=== PATIENT | female | born 1950 | race Caucasian/White ===

== ENCOUNTER 2018-02-16 06:16 | Inpatient (IN) | payer BC, OTHER ==
[2018-02-02 09:49] VITALS: Ht 165.1 cm; Wt 84.3 kg
--- NOTE | 2018-02-02 10:31 | PAT Medication Instructions ---
Service Date Feb 02, 2018. Current Home Medication List Amlodipine/Benazepril (Lotrel 10MG/20MG), 1 CAP PO QAM Aspirin (Aspirin Ec), 81 MG PO QAM B-Complex Vitamins (B Complex), 1 CAP PO QAM Coenzyme Q10 (Ubidecarenone) (Coq10), 1 CAP PO BID Cranberry-Vitamin C-Vitamin E (Cranberry Plus Vitamin C), 1 CAP PO BID Fish Oil (Pahala-3), 1 CAP PO BID Glucosamine Sulfate (Glucosamine), 1,000 MG PO BID Magnesium Oxide (Magnesium), 250 MG PO BID Meclizine HCl (Meclizine 25), 1 TAB PO UD PRN for dizziness Metoprolol Succ (Toprol Xl) (Toprol-Xl ), 100 MG PO HS Naproxen Ds (Naprosyn Ds), 550 MG PO UD PRN for Pain Nitroglycerin (Nitrostat), 1 TAB SL UD PRN for prn Omeprazole (Prilosec), 20 MG PO QAM Tramadol (Ultram), 50 MG PO Q8H PRN for Pain Umeclidinium-Vilanterol (Anoro Ellipta 62.5-25 Mcg/INH), 1 DOSE INH QAM Medication Instructions For Your Scheduled Surgery -Contact your surgeon for instructions for: Naproxen Ds (Naprosyn Ds), 550 MG PO UD PRN for Pain -Continue as directed: Nitroglycerin (Nitrostat), 1 TAB SL UD PRN for prn - Hold the following medications 2 weeks prior to surgery: Coenzyme Q10 (Ubidecarenone) (Coq10), 1 CAP PO BID Cranberry-Vitamin C-Vitamin E (Cranberry Plus Vitamin C), 1 CAP PO BID Fish Oil (Pahala-3), 1 CAP PO BID Glucosamine Sulfate (Glucosamine), 1,000 MG PO BID - Hold the following medications the morning of surgery: Amlodipine/Benazepril (Lotrel 10MG/20MG), 1 CAP PO QAM B-Complex Vitamins (B Complex), 1 CAP PO QAM Magnesium Oxide (Magnesium), 250 MG PO BID - Take the following medications the morning of surgery with a sip of water: Aspirin (Aspirin Ec), 81 MG PO QAM Omeprazole (Prilosec), 20 MG PO QAM Tramadol (Ultram), 50 MG PO Q8H PRN for Pain (if needed, can be taken up to four hours before surgery) Umeclidinium-Vilanterol (Anoro Ellipta 62.5-25 Mcg/INH), 1 DOSE INH QAM - Take the following medications as scheduled the night before surgery: Magnesium Oxide (Magnesium), 250 MG PO BID Meclizine HCl (Meclizine 25), 1 TAB PO UD PRN for dizziness (if needed) Metoprolol Succ (Toprol Xl) (Toprol-Xl ), 100 MG PO HS Tramadol (Ultram), 50 MG PO Q8H PRN for Pain (if needed) If you have any questions please call us at [phone] or [phone] or [phone]
--- NOTE | 2018-02-02 11:24 | DIAGNOSTIC IMAGING REPORT ---
CHEST 2 VIEWS ROUTINE HISTORY: 67 years-old Female PAT preoperative exam. No acute chest complaints COMPARISON: None available TECHNIQUE: PA and lateral views of the chest FINDINGS: Cardiomediastinal and hilar silhouettes are within normal limits. No pneumothorax, pleural effusion, focal airspace consolidation or overt pulmonary edema. Minimal linear subsegmental atelectasis or scarring of the left lung base. Bones of the chest appear grossly intact. Cholecystectomy clips are noted. IMPRESSION: No acute process. The above report was generated using voice recognition software. It may contain grammatical, syntax or spelling errors. Electronically signed by: Stanley Moreno M.D. 02/02/2018 11:22 AM Dictated Date/Time: 02/02/2018 11:21 AM
[2018-02-02 11:53] LABS: BASO % 0.2 %; BASO ABS # 0.02 K/uL (0-0.2); EOS % 1.5 %; EOS ABS # 0.12 K/uL (0-0.5); HEMATOCRIT 40.7 % (37-47); HEMOGLOBIN 13.8 g/dL (12.0-16.0); IG# 0.01 K/uL (0.00-0.02); LYMPH % 30.2 %; LYMPH ABS # 2.45 K/uL (1.2-3.4); MEAN CELL VOLUME 96.4 fL (80-100); MEAN CORPUSCULAR HEMOGLOBIN 32.7 pg (25-34); MEAN CORPUSCULAR HGB CONC 33.9 g/dl (32-36); MEAN PLATELET VOLUME 9.7 fL (7.4-10.4); MONO % 7.4 %; NEUT % 60.6 %; NEUT ABS # 4.92 K/uL (1.4-6.5); PLATELET COUNT 304 K/uL (130-400); RED CELL DISTRIBUTION WIDTH CV 13.2 % (11.5-14.5); RED CELL DISTRIBUTION WIDTH SD 45.1 fL (36.4-46.3); WHITE BLOOD COUNT 8.12 K/uL (4.8-10.8)
[2018-02-02 12:53] LABS: BLOOD UREA NITROGEN 24 mg/dl (7-18); CALCIUM 9.5 mg/dl (8.5-10.1); CARBON DIOXIDE 27 mmol/L (21-32); CREATININE 1.17 mg/dl (0.60-1.20); GLUCOSE 114 mg/dl (70-99); POTASSIUM 4.6 mmol/L (3.5-5.1); SODIUM 135 mmol/L (136-145)
--- NOTE | 2018-02-08 17:57 | HISTORY & PHYSICAL EXAMINATION ---
DATE OF ADMISSION: 02/16/2018 CHIEF COMPLAINT: Right hip and leg pain. HISTORY OF PRESENT ILLNESS: The patient is a 67-year-old female who presents for surgical treatment of her right hip. She has about a 7- to 8-month history of markedly increased right hip pain and discomfort. He describes buttock pain, groin pain, and thigh pain. He describes it gotten worse over the past several months. She got more debilitated by this. She did have one injection which helped her very temporarily. She has actually has ordered to use a cane to get around for the past several months. She has had imaging studies which show progressive hip arthritis. She would like to proceed with total hip replacement. PAST MEDICAL HISTORY: 1. Hypertension. 2. Elevated cholesterol. 3. Arthritis. 4. Gastroesophageal reflux disease. 5. Melanoma of the skin. PAST SURGICAL HISTORY: 1. Hysterectomy. 2. Cholecystectomy. 3. Skin cancer removal. 4. Eye surgery. 5. Trigger finger release done by myself. ALLERGIES: KEFLEX WHICH CAUSES HIVES. CURRENT MEDICINES: Include: 1. Omeprazole. 2. Lotrel. 3. Toprol-XL. 4. Fish oil. 5. Aspirin 81 mg. 6. Glucosamine/chondroitin. 7. Ellipta. 8. Magnesium. 9. Coenzyme Q. 10. Vitamin B complex. 11. Cranberry. SOCIAL HISTORY: 67-year-old female. She is from [place]. She is . One to two drinks per week. Four children. Does not smoke. FAMILY HISTORY: Significant for diabetes. REVIEW OF SYSTEMS: Negative for diabetes, neurologic problems, vascular problems or bleeding disorders. Denies any chest pain or shortness of breath. No signs of DVT or PE. PHYSICAL EXAMINATION: GENERAL: Reveals a healthy, pleasant middle-aged female. Looks to be in pretty good health. HEENT: Benign. NECK: Supple. No lymphadenopathy. LUNGS: Clear to auscultation. HEART: Regular rate and rhythm. ABDOMEN: Soft, nontender, nondistended. EXTREMITIES: Grossly neurovascularly intact except as follows: Examination of the right leg reveals the patient walks with use of a cane. She walks with a markedly antalgic gait. Leg lengths appear pretty equal. She may be a 0.5 cm short on the right side compared to the left. She has pain with any type of hip motion. No knee effusion. Internal rotation is to 10 degrees. X-RAYS: X-ray of the right hip reviewed. It shows advanced right hip DJD. She has complete loss of her joint space. She has got fairly concentric disease with cystic change of the femoral head and acetabulum. This has progressed markedly over the past year. MRI of the hip was also reviewed from 10/26/2017. It is on the [facility] system. It shows advanced hip arthritis. No signs of AVN. ASSESSMENT: A 67-year-old white female with a year history of progressive increasing right hip pain and discomfort, unresponsive to conservative treatment. She has gotten to the point where she has to use a cane to get around. PLAN: We are going to take her to the operating room and do a right total hip replacement. The risks and benefits of this procedure were explained to the patient but not limited to DVT, PE, , infection, neurological injury, vascular injury, bleeding problem, pain, limited range of motion, stiffness, failure to relieve symptoms, incomplete relief of symptoms, need for further surgery in future, fracture, leg length inequality, nerve palsy, dislocation, etc. The patient understands and desires. Informed consent was obtained. We did talk to her about taking her Toprol the morning of surgery and holding her supplements 10 days preop. She apparently HAS AN ALLERGIC REACTION TO KEFLEX, so will use vancomycin as a result. We will need to start that early. She is planning to be discharged home using the home health program. JOSE RAMON
[~2018-02-16] VITALS: Ht 165.1 cm; Wt 84.3 kg
[2018-02-16] VITALS (18 sets, daily range): BP systolic 99–163; BP diastolic 62–97; PULSE 68–85; TEMP 36.3–36.8; O2SAT 97–100
[~2018-02-16 06:16] MED LIST: ACETAMINOPHEN 500 MG TAB PO SCH; AMLO10CA PO; ASPI81TA28 PO; B-CO1CAP3 PO; COEN30CA6 PO; CRAN1CAP14 PO; FAMOTIDINE 20 MG TAB PO SCH; GABAPENTIN 300 MG CAP PO SCH; GLUC10007 PO; LACTATED RINGER'S 1000ML 1,000 ML IV SCH; LACTATED RINGER'S 1000ML IV SCH; MAGN1CAP4 PO; MECL-91 PO; METO100T44 PO; METOCLOPRAMIDE HCL 10 MG TAB PO SCH; NAPR-1168 PO; NSS 1000ML IV SCH; NTRGSL/4 SL; OMEG10007 PO; PRLSR20 PO; SCOPOLAMINE 1.5 MG TDSY TD SCH; TRAM-10 PO; TRANEXAMIC ACID 1000 MG IV SCH; UMEC1AER INH; VANCOMYCIN IV 1,250 MG in SODIUM CHLORIDE 0.9% 250ML 250 ML IV SCH
--- NOTE | 2018-02-16 06:53 | History & Physical Bridge Note ---
H&P Re-Evaluation Bridge Note: I have examined the patient, reviewed the History & Physical and in the interval since the performance of the History & Physical I have noted the following changes of clinical significance: No changes noted
[2018-02-16] MEDS ORDERED: BUPIVACAINE 0.5 % 5 MG/1 ML PF 10ML VIAL ONE (07:06)
[2018-02-16] MEDS ORDERED: LIDOCAINE HCL 2% 2 ML VIAL (20MG/ML) ONE (07:43)
[2018-02-16] MEDS ORDERED: MIDAZOLAM HCL 1 MG/ML 2ML VIAL ONE ×2 (07:43)
[2018-02-16] MEDS ORDERED: PROPOFOL IV EMULSION 10 MG/ML 20 ML VIAL IV ONE (07:43)
[2018-02-16] MEDS ORDERED: FENTANYL CITRATE INJ 50 MCG/1 ML 2 ML VIAL ONE (08:18)
[2018-02-16] MEDS ORDERED: MoRPHine SULFATE PF 1 MG/ML 10 ML AMP/VIAL ONE (08:37)
[2018-02-16] MEDS ORDERED: BUPIVACAINE/EPINEPHRINE 0.5% MPF 1:200,000 30 ML VIAL ONE (08:41)
[2018-02-16] MEDS ORDERED: BACITRACIN 50000 UNIT VIAL ONE (08:41)
[2018-02-16] MEDS ORDERED: MoRPHine SULFATE PF 1 MG/ML 10 ML AMP/VIAL EPI SCH (08:55)
[2018-02-16] MEDS ORDERED: PHENYLEPHRINE HCL INJ 10 MG/ML VIAL ONE (09:28)
--- NOTE | 2018-02-16 10:27 | [facility] Post Operative Brief Note ---
Immediate Operative Summary Operative Date Feb 16, 2018. Pre-Operative Diagnosis Advanced Right Hip Degenerative Joint Disease Post-Operative Diagnosis Same as preop Procedure(s) Performed Right Total Hip Arthroplasty Uncemented Surgeon Dr. Kaur Management Trainee Program Stores Surgeon(s) Yogesh Mercer PA-C Estimated Blood Loss 200 ml Findings Consistent with Post-Op Diagnosis Fluids (cc crystalloids) 1600 cc Specimens A. Left Femoral Head Drains None Anesthesia Type Spinal MAC Complication(s) none Disposition Accompanied Pt To Recover: yes Disposition: Recovery Room / PACU
[2018-02-16] MEDS ORDERED: VANCOMYCIN CONSULT ACTIVE PRN (10:30)
[2018-02-16] MEDS ORDERED: METOCLOPRAMIDE HCL INJ 5 MG/ML 2 ML VIAL IV PRN (10:30)
[2018-02-16] MEDS ORDERED: ALUMINUM/MAGNESIUM/SIMETH (MAALOX MAX) 30 ML UDC PO PRN (10:30)
[2018-02-16] MEDS ORDERED: MAGNESIUM HYDROXIDE SUSP 30 ML UDC PO PRN (10:30)
[2018-02-16] MEDS ORDERED: NITROGLYCERIN 0.4 MG SL PER TAB CHARGE SL PRN (10:30)
[2018-02-16] MEDS ORDERED: ATROPINE SULFATE 0.1 MG/ML 5ML SYR IV PRN (10:30)
[2018-02-16] MEDS ORDERED: MECLIZINE HCL 25 MG TAB PO PRN (10:30)
[2018-02-16] MEDS ORDERED: SILVER SULFADIAZINE 1% CR 50 GM JAR EXT PRN (10:30)
[2018-02-16] MEDS ORDERED: EpHEDrine SULFATE INJ 50 MG/ML AMP IV PRN ×2 (10:30→11:30)
[2018-02-16] MEDS ORDERED: BISACODYL 10 MG SUPP PR PRN (10:30)
--- NOTE | 2018-02-16 11:16 | OPERATIVE REPORT ---
DATE OF OPERATION: 02/16/2018 SURGEON: Saturnino Kaur MD YEAST CAKE CUTTER: ALBERT Boles PREOPERATIVE DIAGNOSIS: Right hip degenerative joint disease. POSTOPERATIVE DIAGNOSIS: Same. PROCEDURE PERFORMED: Right uncemented ceramic on highly cross-linked polyethylene total hip arthroplasty. COMPLICATIONS: None. ESTIMATED BLOOD LOSS: 200 mL. FLUID REPLACEMENT: 1600 mL crystalloid fluid replacement. ANESTHESIA: Spinal. DRAINS: None. SPECIMENS: Right femoral head sent for pathology. OPERATIVE INDICATIONS: The patient is a 67-year-old female who has had about an 8-month history of significantly increasing, gradually progressive increasing right hip pain, unresponsive to conservative care. She has been through extensive management including medicines and injection, which provided some temporary relief only. She actually resorted to using a cane to get around. X-rays show advanced right hip DJD. This progressed significantly over the past year. She elected to proceed with total hip arthroplasty. OPERATIVE FINDINGS: Operative findings revealed advanced right hip DJD. She did have grade 4 degenerative changes of the femoral head and acetabulum, more severe on the femoral head side. Some small osteophytes off the anterior aspect of the acetabulum. Small hip effusion. OPERATIVE IMPLANTS: Operative implants consisted of: 1. Biomet G7 size 48-mm acetabular shell. 2. A 6.5 cancellous acetabular screws, one at 35 mm length and one at 30 mm length. 3. An apex hole eliminator. 4. A highly cross-linked polyethylene liner with a 48 mm outer diameter and 28 mm inner diameter. 5. A DePuy size 10 coxa vara Corail femoral stem. 6. A +1.5/28 mm ceramic articular ball. OPERATIVE PROCEDURE: The patient was taken to the operating room, identified, and placed on the operating table in the supine position. All contact areas were appropriately padded. IV antibiotics were provided by anesthesia team. A spinal anesthetic had been implemented in the holding area. Miller catheter was placed in sterile fashion. The patient was then placed in the left lateral decubitus position. An axillary roll was placed. Stulberg hip positioner was used for positioning. The hip and leg were then prepped and draped in the usual sterile fashion. A posterolateral approach to the right hip was then performed through a curvilinear incision centered over the greater trochanter. Sharp dissection carried through the subcutaneous tissues down to the level of the IT band and gluteal fascia. The IT band and gluteal fascia were incised longitudinally in line with skin incision. The underlying greater trochanteric bursa was excised. The piriformis and external rotators were tagged and taken off the posterior aspect of the femur. Great care was taken throughout the procedure to protect the sciatic nerve at all times. Posterior capsulotomy was then performed leaving a large flap for later repair. Hip was internally rotated and dislocated. Femoral neck osteotomy cut was made with final cut about 7 mm above the lesser trochanter. Femoral head was removed and sent for pathology. The femur was retracted anteriorly. Attention was then drawn to the acetabulum. The acetabular labrum was excised. The pulvinar fat was excised. Sequential reaming of the acetabulum was then performed beginning with size 43 and progressing up to 47. A 48-mm Biomet G7 acetabular shell was then placed in about 45 degrees of lateral opening and 20 degrees of anteversion. I did have to open the entrance with a 48 reamer to get the cup in place. The cup was then fixed with two 6.5 cancellous acetabular screws. Some osteophytes were taken off anteriorly. A trial liner was placed. Attention was then drawn to the femur. The proximal femur was entered with a cookie cutter followed by canal finder. I broached beginning with a size 8 and progressed up to a 9. I got good fit at 9, but it did countersink a little bit, so I put the 10. I had difficulty fitting the [address] We elected to leave it just a little bit proud. I then trialed the hip. +1.5 articular ball provided full stability in full extension and external rotation and flexion to 90 degrees and internal rotation to 60+ degrees. Her leg lengths seemed to be just a little bit longer on this side, but I felt this was all I could do as we did not have any shorter neck lengths and I did not feel comfortable impacting this implant any further. We elected to accept these implants. All trial implants were removed. An apex hole eliminator was placed. Highly cross-linked polyethylene liner was placed. A 10 coxa vara Corail femoral stem was impacted in position. I left this about 2-mm proud. We then placed a +1.5/28 mm articular ball. Hip was located and found to be stable. Attention was then drawn toward closing. The wound was then irrigated with copious amounts of pulsatile lavage solution. I injected locally with 60 mL of 0.5% Marcaine with epinephrine. The posterior capsule and external rotators were repaired through drill holes in the posterior trochanter with #2 Ti-Cron suture. The IT band and gluteal fascia were then closed with #1 PDS suture in a running fashion. The subcutaneous tissues were then closed in 2 layers with the deep layer #1 Vicryl suture and subcutaneous tissues with 2-0 Dexon suture in buried interrupted fashion. The skin was closed with skin cindy. Leg was then cleaned and dried and a sterile dressing of Xeroform, 4 x 4's, ABD pad and foam tape was applied. The patient then transferred to the recovery room in stable condition. The patient tolerated the procedure well with no complications. All needle and sponge counts were correct at the end of the operation. I attest to the content of the Intraoperative Record and any orders documented therein. Any exception s are noted below.
[2018-02-16] MEDS ORDERED: LACTATED RINGER'S 1000ML 500 ML IV PRN (11:23)
[2018-02-16] MEDS ORDERED: SODIUM CHLORIDE 0.9% 1000ML 1,000 ML IV PRN (11:23)
[2018-02-16] MEDS ORDERED: NALOXONE HCL INJ 0.08 MG in SYRINGE 1.8 ML IV PRN (11:23)
[2018-02-16] MEDS ORDERED: NALOXONE HCL INJ 1 MG in SODIUM CHLORIDE 0.9% 1000ML 1,000 ML IV PRN ×4 (11:23)
--- NOTE | 2018-02-16 11:27 | Anesthesiology Progress Note ---
Anesthesia Post Op Note Date & Time Feb 16, 2018 at 11:26 Vital Signs Pain Intensity: 0 Vital Signs Past 12 Hours Date Time Temp Pulse Resp B/P (MAP) Pulse Ox O2 Delivery O2 Flow Rate FiO2 02/16/18 11:10 36.5 76 16 143/74 99 Nasal Cannula 3 02/16/18 10:55 72 16 130/67 98 Nasal Cannula 3 02/16/18 10:45 75 16 131/67 98 Nasal Cannula 3 02/16/18 10:35 71 16 129/66 98 Nasal Cannula 3 02/16/18 10:27 36.8 82 16 136/68 96 Nasal Cannula 3 02/16/18 07:29 36.8 82 18 163/97 98 Room Air Notes Mental Status: alert / awake / arousable, participated in evaluation Pt Amnestic to Procedure: Yes Nausea / Vomiting: adequately controlled Pain: adequately controlled Airway Patency, RR, SpO2: stable & adequate BP & HR: stable & adequate Hydration State: stable & adequate Neuraxial Anesthesia: was administered, sensory block is resolving Anesthetic Complications: no major complications apparent
[2018-02-16] MEDS ORDERED: NO NARCOTICS OR SEDATIVES SCH (11:30)
[2018-02-16] MEDS ORDERED: NALOXONE HCL 0.4 MG/1 ML VIAL/CARP IV PRN (11:30)
[2018-02-16] MEDS ORDERED: ONDANSETRON INJ 2 MG/ML 2 ML VIAL IV PRN (11:30)
[2018-02-16] MEDS ORDERED: DiphenhydrAMINE HCL 50 MG/ML VIAL IV PRN (11:30)
[2018-02-16] MEDS ORDERED: PROMETHAZINE HCL INJ 25 MG in SODIUM CHLORIDE 0.9% 50ML 50 ML IV PRN (11:30)
[2018-02-16] MEDS ORDERED: NALBUPHINE HCL INJ 10 MG/ML AMP IV PRN (11:30)
--- NOTE | 2018-02-16 11:34 | DIAGNOSTIC IMAGING REPORT ---
R PELVIS/UNILATERAL HIP 1 VIEW CLINICAL HISTORY: Right hip degenerative joint disease. COMPARISON: Right hip radiographs February 05, 2018. FINDINGS: Alignment of the total right hip arthroplasty is anatomic. There is no fracture or unexpected radiopaque foreign body. There are 2 acetabular screws and skin cindy. IMPRESSION: Expected findings following total right hip arthroplasty. Electronically signed by: Tyree Bailey M.D. 02/16/2018 11:33 AM Dictated Date/Time: 02/16/2018 11:32 AM
[2018-02-16] MEDS: D5W AND 1/2NSS + 20MEQ KCL 1,000 ML IV SCH ×2 (13:59→23:51)
--- NOTE | 2018-02-16 13:59 | PROGRESS NOTE ---
DATE: 02/16/2018 SUBJECTIVE: A 67-year-old white female postop from a right total hip replacement. She is doing pretty well. Pain is controlled, but she does have quite a bit of nausea. Just got some Zofran. Denies any chest pain or shortness of breath. Not feeling dizzy or lightheaded. OBJECTIVE: VITAL SIGNS: Temperature is 36.4. Vital signs stable. GENERAL: Physical examination reveals a pleasant, middle-aged female. She is sitting up in her bed and does look nauseated. LUNGS: Clear to auscultation. HEART: Regular rate and rhythm. ABDOMEN: Soft, nontender, and nondistended. EXTREMITIES: Grossly neurovascularly intact except as follows. Examination of the right leg reveals the leg lengths to be equal. Hip is located. Her dressing is clean, dry and intact. Thigh is soft and supple. She can dorsiflex and plantarflex her foot appropriately. She is neurologically intact. X-RAYS: X-rays of the right hip from the recovery room were reviewed. It shows right uncemented total hip arthroplasty. Components looked to be in good position. No signs of problems. ASSESSMENT: A 67-year-old white female postop from a right total hip replacement, doing pretty well. Her pain is controlled. Hip is located. She is neurologically intact. She has been nauseated and just got some Zofran. PLAN: 1. DVT prophylaxis including thigh high TEDs, SCDs, and aspirin twice a day. 2. PT/OT. Weightbear as tolerated. Right total hip protocol. 3. Pain control, doing well with current pain regimen. 4. IV antibiotics x24 hours. 5. Nausea. She has just got some Zofran. This is likely related to morphine and spinal. 6. Disposition: Plan to discharge to home with some home health once adequately recovered.
[2018-02-16] MEDS: ACETAMINOPHEN 500 MG TAB PO SCH ×2 (14:00→21:28)
[2018-02-16] MEDS: KETOROLAC TROMETHAMINE 15 MG/ML VIAL IV. SCH ×2 (14:04→20:15)
[2018-02-16] MEDS: CHECK SCOPOLAMINE PATCH PLACEMENT SCH ×2 (15:28→23:51)
[2018-02-16] MEDS: UMECLIDINIUM SCH ×2 (15:29→17:53)
[2018-02-16] MEDS: VILANTEROL SCH ×2 (15:29→17:53)
[2018-02-16] MEDS ORDERED: TRANEXAMIC ACID INJ 1,000 MG in SODIUM CHLORIDE 0.9% 100ML 100 ML IV SCH (16:30)
[2018-02-16] MEDS: FERROUS GLUCONATE 324 MG TAB PO SCH (17:45)
[2018-02-16] MEDS ORDERED: VANCOMYCIN IV 1,250 MG in SODIUM CHLORIDE 0.9% 250ML 250 ML IV SCH (19:00)
[2018-02-16] MEDS: ASPIRIN 81 MG ECTAB PO SCH (20:23)
[2018-02-16] MEDS: MAGNESIUM OXIDE 400 MG TAB PO SCH (20:23)
[2018-02-16] MEDS: SENNA 8.6 MG TAB PO SCH (20:23)
[2018-02-16] MEDS: DOCUSATE SODIUM 100 MG CAP PO SCH (20:23)
[2018-02-16] MEDS: METOPROLOL SUCC 50MG EXT REL TAB PO SCH (20:24)
[2018-02-16] MEDS ORDERED: NON-FORMULARY MEDICATION (Coenzyme Q10 (Ubidecarenone) (Coq10) 1 CAP) PO SCH (21:00)
[2018-02-17] VITALS (9 sets, daily range): BP systolic 107–121; BP diastolic 66–74; PULSE 67–84; TEMP 36.3–36.8; O2SAT 95–100
[2018-02-17] MEDS: KETOROLAC TROMETHAMINE 15 MG/ML VIAL IV. SCH ×4 (02:19→19:49)
[2018-02-17] MEDS ORDERED: TRAMADOL HCL 50 MG TAB PO PRN (04:00)
[2018-02-17] MEDS ORDERED: DC INTRASPINAL MORPHINE SCH (04:00)
[2018-02-17] MEDS ORDERED: ONDANSETRON INJ 2 MG/ML 2 ML VIAL IV PRN (04:00)
[2018-02-17] MEDS ORDERED: HYDROmorphone INJ 0.5 MG/0.5 ML SYR IV PRN (04:00)
[2018-02-17] MEDS ORDERED: ZOLPIDEM TARTRATE 5 MG TAB PO PRN (04:00)
[2018-02-17] MEDS: ACETAMINOPHEN 500 MG TAB PO SCH ×3 (06:35→20:57)
[2018-02-17 06:56] LABS: BASO % 0.2 %; BASO ABS # 0.02 K/uL (0-0.2); EOS % 0.3 %; EOS ABS # 0.03 K/uL (0-0.5); HEMOGLOBIN 11.1 g/dL (12.0-16.0); IG# 0.03 K/uL (0.00-0.02); LYMPH % 25.1 %; LYMPH ABS # 2.76 K/uL (1.2-3.4); MEAN CORPUSCULAR HEMOGLOBIN 31.4 pg (25-34); MEAN CORPUSCULAR HGB CONC 32.6 g/dl (32-36); MEAN PLATELET VOLUME 9.3 fL (7.4-10.4); MONO ABS # 0.88 K/uL (0.11-0.59); NEUT % 66.1 %; NEUT ABS # 7.26 K/uL (1.4-6.5); PLATELET COUNT 233 K/uL (130-400); RED CELL DISTRIBUTION WIDTH CV 13.4 % (11.5-14.5); RED CELL DISTRIBUTION WIDTH SD 46.8 fL (36.4-46.3); WHITE BLOOD COUNT 10.98 K/uL (4.8-10.8)
[2018-02-17 07:30] LABS: CALCIUM 8.1 mg/dl (8.5-10.1); CREATININE 1.07 mg/dl (0.60-1.20); POTASSIUM 4.5 mmol/L (3.5-5.1)
[2018-02-17] MEDS: CHECK SCOPOLAMINE PATCH PLACEMENT SCH ×2 (08:00→14:57)
--- NOTE | 2018-02-17 08:29 | PROGRESS NOTE ---
DATE: 02/17/2018 SUBJECTIVE: A 67-year-old white female postop day 1 from right total hip replacement. Doing much better this morning. The nausea is gone. No chest pain or shortness of breath. Not feeling dizzy or lightheaded. Pain is controlled. OBJECTIVE: VITAL SIGNS: Temperature 36.3. Vital signs stable. PHYSICAL EXAMINATION: GENERAL: Shows a pleasant middle-aged female. She is sitting up in bed, looks pretty comfortable. EXTREMITIES: Examination of the right hip reveals the dressing to be clean, dry and intact. Leg lengths are equal. Hip is located. NEUROLOGIC: She is neurologically intact. LABORATORY DATA: Hemoglobin 11.1. Hematocrit 34.0. Electrolytes are stable. ASSESSMENT: A 67-year-old white female postop day 1 from right total hip replacement. She is doing well. Pain is controlled. Nausea is resolved. She is neurologically intact. PLAN: 1. DVT prophylaxis including thigh-high TEDs, SCDs, and aspirin twice a day. 2. PT/OT. Weight bear as tolerated. Right total hip protocol. 3. Pain control, doing well with current pain regimen. 4. Disposition: She is hoping to be discharged to home and do outpatient therapy if needed.
[2018-02-17] MEDS: UMECLIDINIUM SCH ×2 (08:36→17:26)
[2018-02-17] MEDS: FERROUS GLUCONATE 324 MG TAB PO SCH ×3 (08:36→17:35)
[2018-02-17] MEDS: VILANTEROL SCH ×2 (08:36→17:26)
[2018-02-17] MEDS: DOCUSATE SODIUM 100 MG CAP PO SCH ×2 (08:37→20:56)
[2018-02-17] MEDS: MAGNESIUM OXIDE 400 MG TAB PO SCH ×2 (08:37→20:56)
[2018-02-17] MEDS: ASPIRIN 81 MG ECTAB PO SCH ×2 (08:37→20:56)
[2018-02-17] MEDS: PANTOprazole SOD 40 MG TAB PO SCH (08:38)
[2018-02-17] MEDS: MULTIVITAMIN TAB PO SCH (08:38)
[2018-02-17] MEDS: ENALAPRIL MALEATE 10 MG TAB PO SCH (08:39)
[2018-02-17] MEDS: VITAMIN B COMPLEX TAB PO SCH (08:39)
[2018-02-17] MEDS ORDERED: PANTOprazole SOD 40 MG TAB PO SCH (09:00)
[2018-02-17] MEDS: D5W AND 1/2NSS + 20MEQ KCL 1,000 ML IV SCH (09:40)
[2018-02-17] MEDS: AMLODIPINE BESYLATE 5 MG TAB PO SCH (10:09)
[2018-02-17] MEDS: SENNA 8.6 MG TAB PO SCH (20:56)
[2018-02-17] MEDS: METOPROLOL SUCC 50MG EXT REL TAB PO SCH (20:56)
[2018-02-17] MEDS ORDERED: ULT50X PO (22:13)
[2018-02-17] MEDS ORDERED: ASPEC81 PO (22:13)
[2018-02-17] MEDS ORDERED: ACET-24 PO (22:13)
--- NOTE | 2018-02-17 22:16 | Discharge Instructions ---
Discharge Instructions Date of Service Feb 17, 2018. Admission Reason for Admission: Right Hip Degenerative Joint Disease Discharge Discharge Diagnosis / Problem: Right Hip Replacement Discharge Goals Goal(s): Decrease discomfort, Improve function, Increase independence, Improve disease control, Therapeutic intervention Activity Recommendations Activity Limitations: per Instructions/Follow-up section (Total Hip Precautions ) Weightbearing Status: Right weightbearing . Instructions / Follow-Up Instructions / Follow-Up ACTIVITY RECOMMENDATIONS: Physical Therapy: * Aggressive physical therapy is not usually needed. You will learn to take care of yourself safely and walk. * Follow the "Hip Precautions Instructions." * In some cases, the long term care social worker at the hospital will arrange to have a therapist come to your house for the first couple of weeks to help you learn these skills. * You need to practice on your own or with the help of a family member as needed. * When you learn these skills, most of the therapy can be done on your own. Home Exercise: * You were shown a series of exercises in the hospital. Do these exercises three to four times each day including the exercises you were shown in physical therapy. Walking: * Get up and walk several times each day. For the first four weeks, try not to stand or walk for more than one hour at a time. If you do stand or walk for more than one hour, you will not hurt anything, but your leg will likely swell. * As you feel comfortable, you may change from the walker or crutches to a cane and then to independent walking. MEDICATIONS: New Medicine: * You will likely be taking one or more of these medicines: 1. Tramadol - Take, as directed, when you need it, every four to six hours to control your pain. 2. Aspirin - Thins your blood to lessen the chance of forming a blood clot. * The most common side effects of pain medicine and iron are nausea and constipation. If nausea or constipation is too much of a problem or if you have any questions about your new medicines or doses, call [facility] at [phone]. We will try to help you manage these issues. VERY IMPORTANT TO READ AND REVIEW" Pain: * The immediate post-operative period after hip replacement surgery is often quite painful. * You are given a prescription for pain medicine. You should take it, as directed, when you need it, especially before physical therapy and before going to bed. Pain that interferes with sleep is very common and can last several months. * You will likely need pain medicine for the first two to four weeks. It will not stop all of the pain. The pain will lessen and as you feel better, you may change to milder pain medicine such as Tylenol. * The most common side effects of pain medicine are nausea and constipation, so don't take more than you need. SPECIAL CARE INSTRUCTIONS: TEDs/Elastic Stockings: * The white elastic stockings help limit swelling and prevent blood clots from forming in your legs. The more you wear them, the more they work. * Wear them for six weeks. Prevention of Infection: * Take antibiotics one hour before any dental cleaning, dental work, urological procedure, gastrointestinal procedure or any invasive surgery in order to prevent your new joint from getting infected. * You may get the antibiotics from the doctor performing the procedure or you may call our office at before and we will call in a prescription to the pharmacy of your choice. Things to Watch For: * Drainage from the incision site that occurs more than one week after your surgery. * Severely increased leg pain or swelling. * Increased redness at the incision site. * Fever above 102 degrees Fahrenheit. * Unusual chest pain or shortness of breath. * Unusual pain or burning with urination. Call [facility] at with any of the above problems or if you have any questions about your medicines or recovery. FOLLOW UP VISIT: Make an appointment to see your doctor for approximately two weeks after surgery for a progress check and staple removal by calling the office at . Current Hospital Diet Patient's current hospital diet: Regular Diet Discharge Diet Recommended Diet: Regular Diet Procedures Procedures Performed: Right Total Hip Arthroplasty Uncemented Pending Studies Studies pending at discharge: no Medical Emergencies . Who to Call and When: Medical Emergencies: If at any time you feel your situation is an emergency, please call [phone] immediately. . Non-Emergent Contact Non-Emergency issues call your: Surgeon . "Provider Documentation" section prepared by Saturnino Kaur. .
[2018-02-18] MEDS: CHECK SCOPOLAMINE PATCH PLACEMENT SCH ×2 (00:07→07:54)
[2018-02-18] MEDS: KETOROLAC TROMETHAMINE 15 MG/ML VIAL IV. SCH ×2 (02:08→07:54)
[2018-02-18 06:05] VITALS: BP 132/78; PULSE 72; TEMP 36.9; O2SAT 96
[2018-02-18] MEDS: ACETAMINOPHEN 500 MG TAB PO SCH (06:08)
[2018-02-18] MEDS: FERROUS GLUCONATE 324 MG TAB PO SCH (07:54)
[2018-02-18] MEDS: VITAMIN B COMPLEX TAB PO SCH (07:55)
[2018-02-18] MEDS: MULTIVITAMIN TAB PO SCH (07:55)
[2018-02-18] MEDS: DOCUSATE SODIUM 100 MG CAP PO SCH (07:55)
[2018-02-18] MEDS: ENALAPRIL MALEATE 10 MG TAB PO SCH (07:56)
[2018-02-18] MEDS: PANTOprazole SOD 40 MG TAB PO SCH (07:56)
[2018-02-18] MEDS: MAGNESIUM OXIDE 400 MG TAB PO SCH (07:56)
[2018-02-18] MEDS: ASPIRIN 81 MG ECTAB PO SCH (07:57)
[2018-02-18] MEDS: AMLODIPINE BESYLATE 5 MG TAB PO SCH (07:57)
--- NOTE | 2018-02-18 08:08 | PROGRESS NOTE ---
DATE: 02/18/2018 SUBJECTIVE: A 67-year-old white female postop day 2 from right hip replacement. She is doing pretty well. Pain is controlled. No further nausea. No chest pain or shortness of breath. OBJECTIVE: VITAL SIGNS: Temperature is 36.9. Vital signs stable. PHYSICAL EXAMINATION: GENERAL: Shows a pleasant middle-aged female. She is sitting up at her bedside chair, eating breakfast, looks pretty comfortable. EXTREMITIES: Examination of the right hip reveals the dressing to be clean, dry and intact. Hip is located. She can dorsiflex and plantarflex her foot appropriately. NEUROLOGIC: She is neurologically intact. ASSESSMENT: A 67-year-old female postop day 2 from right hip replacement, doing pretty well. PLAN: 1. DVT prophylaxis including thigh-high TEDs, SCDs, and aspirin twice a day. 2. PT/OT. Weight bear as tolerated. Right total hip protocol. 3. Pain control, doing pretty well with current pain regimen. 4. Disposition: Planning to discharge to home after therapy today.
[2018-02-18 08:55] VITALS: BP 132/78; PULSE 72; TEMP 36.9; O2SAT 96
[2018-02-18] MEDS: VILANTEROL SCH (09:00)
[2018-02-18] MEDS: UMECLIDINIUM SCH (09:00)
== END 2018-02-18 10:15 | disposition home or self-care (01) | DRG 470 ==
LOC: C.ACU 06:16 → C.3E 06:35 → ENRESERV 11:00
PROVIDERS: ADMIT Orthopaedic Surgery Sports Medicine; ATTEND Orthopaedic Surgery Sports Medicine
PROC: 0SR904A Replacement of Right Hip Joint with Ceramic on Polyethylene Synthetic Substitute, Uncemented, Open Approach (ICD-10-PCS; principal; 2018-02-16 09:00)
DX: M16.11 Unilateral primary osteoarthritis, right hip (principal); R11.0 Nausea; T40.2X5A Adverse effect of other opioids, initial encounter; T41.3X5A Adverse effect of local anesthetics, initial encounter; I12.9 Hypertensive chronic kidney disease with stage 1 through stage 4 chronic kidney disease, or unspecified chronic kidney disease; N18.3 Chronic kidney disease, stage 3 (moderate); J98.4 Other disorders of lung; K21.9 Gastro-esophageal reflux disease without esophagitis; E66.9 Obesity, unspecified; Z68.30 Body mass index [BMI] 30.0-30.9, adult; Z85.820 Personal history of malignant melanoma of skin; Z97.0 Presence of artificial eye; Z90.01 Acquired absence of eye; Z90.710 Acquired absence of both cervix and uterus; Z90.49 Acquired absence of other specified parts of digestive tract; Z98.890 Other specified postprocedural states; Z79.82 Long term (current) use of aspirin; Z79.899 Other long term (current) drug therapy; Z88.1 Allergy status to other antibiotic agents